=== PATIENT | female | born 1990 | race American Indian/Alaskan Native ===

== ENCOUNTER 2019-09-23 01:02 | Emergency (ER) | payer SELFPAY ==
[2019-09-23 01:25] VITALS: BP 137/96
[2019-09-23] MEDS ORDERED: ACETAMINOPHEN 325 MG TAB PO ONE (01:25)
[2019-09-23] MEDS ORDERED: ACETAMINOPHEN 325 MG TAB ONE (01:27)
[2019-09-23] MEDS ORDERED: predniSONE 20 MG TAB PO ONE (07:48)
--- NOTE | 2019-09-23 07:51 | Emergency Department Report ---
Minor Respiratory - HPI Chief Complaint: Upper Respiratory Infection Stated Complaint: HEAD/THROAT PAIN Time Seen by Provider: 09/23/19 07:42 Duration: 3 Days Pain Location: Facial, Throat, Nose, Chest Severity: moderate Minor Respiratory: Yes Rhinorrhea, Yes Sore Throat, Yes Able to Tolerate Fluids, Yes Cough, Yes Fever, No Ear Pain, No Sick Contacts, No Hemoptysis, No Chest Pain, No Shortness of Breath Other History: 29 YO AA FEMALE COMES TO ER WITH SORE THROAT, HEADACHE, COUGH, FEVER FOR 3 DAYS. SHE IS HOARSE ON EXAM. ILL APPEARING. NO MYALGIA. DID NOT SEE PCP. DID NOT TAKE RX BEFORE COMING TO ER. TYLENOL GIVEN PRIOR TO MY EXAM. ED Review of Systems ROS: Stated complaint: HEAD/THROAT PAIN Other details as noted in HPI Comment: All other systems reviewed and negative ED Past Medical Hx - Past Medical History Previous Medical History?: No Hx Hypertension: No Hx Diabetes: No Hx Deep Vein Thrombosis: No Hx Renal Disease: No Hx Sickle Cell Disease: No Hx Seizures: No Hx Asthma: No - Surgical History Past Surgical History?: No - Family History Family history: no significant - Social History Smoking Status: Never Smoker Substance Use Type: None - Medications Home Medications: Home Medications Medication Instructions Recorded Confirmed Last Taken Type Amoxicillin [Trimox CAP] 500 mg PO BID #20 capsule 09/23/19 Unknown Rx Minor Respiratory Exam - Exam General: Vital signs noted. No distress. Alert and acting appropriately. HEENT: Yes Pharyngeal Erythema, Yes Pharyngeal Exudates, Yes Moist Mucous Membranes, Yes Rhinorrhea, Yes Conjuctival Injection, Yes Frontal Tenderness, Yes Maxillary Tenderness Ear: Neither TM Bulge, Neither TM Erythema, Neither EAC Pain, Neither EAC Discharge Neck: Yes Adenopathy, Yes Supple Lungs: Yes Good Air Exchange, No Wheezes, No Ronchi, No Stridor, No Cough, No Labored Respirations, No Retractions, No Use of Accessory Muscles, No Other Abnormal Lung Sounds Heart: Yes Regular, No Murmur Abdomen: Yes Normal Bowel Sounds, No Tenderness, No Peritoneal Signs Skin: No Rash, No Edema Neurologic: Alert and oriented, no deficits. Musculoskeletal: Unremarkable. ED Course Vital Signs 09/23/19 09/23/19 01:22 01:53 Temperature 100.7 F H Pulse Rate 86 Respiratory 18 18 Rate Blood Pressure 137/96 O2 Sat by Pulse 100 Oximetry ED Medical Decision Making - Medical Decision Making Vital Signs 09/23/19 09/23/19 01:22 01:53 Temperature 100.7 F H Pulse Rate 86 Respiratory 18 18 Rate Blood Pressure 137/96 O2 Sat by Pulse 100 Oximetry THROAT RED/ B EXUDATES POS MAX/FRONTAL SINUS TENDERNESS FEBRILE ON ADMIT SAT WNL NO ASTHMA LUNGS CTA TAKING PO ON DC AMBULATORY DC HOME WITH RX AND PCP FOLLOW UP - Differential Diagnosis URI- SINUS/PHARYNGITIS/FLU/PNA Critical care attestation.: If time is entered above; I have spent that time in minutes in the direct care of this critically ill patient, excluding procedure time. ED Disposition Clinical Impression: URTI (acute upper respiratory infection), Exudative pharyngitis Disposition: DC-01 TO HOME OR SELFCARE Is pt being admited?: No Does the pt Need Aspirin: No Condition: Stable Instructions: Upper Respiratory Infection (ED) Additional Instructions: STAY WELL HYDRATED MOTRIN OR TYLENOL FOR PAIN OVER THE COUNTER SYMPTOM RELIEF MED ORDERED TODAY FOLLOW UP WITH PCP IN 48 HOUR IF NO BETTER REFERRAL BELOW Referrals: DERREK GONZALES MD [Staff Physician] - 3-5 Days Time of Disposition: 07:51
== END 2019-09-23 08:05 | disposition home or self-care (01) ==
LOC: ED 01:02
DX: J02.8 Acute pharyngitis due to other specified organisms (principal); Z79.2 Long term (current) use of antibiotics
CPT/HCPCS: 99282; J7512